=== PATIENT | male | born 1995 | race Caucasian/White ===

== ENCOUNTER 2019-05-15 11:53 | Emergency (ER) | payer OTHER ==
[~2019-05-15] VITALS: Ht 180.3 cm; Wt 88.5 kg
--- NOTE | ~2019-05-15 | EKG ---
[place] [address] ELECTROCARDIOGRAM REPORT Name: ANGELIA LÓPEZ Room: [facility]#: [id number] Admission: 05/15/19 Attend Phys: Discharge: Date of : 89 Date of Service: 05/15/19 1225 Report #: [id number] THIS REPORT FOR: cc: Carlos Alberto Iniguez MD, Dylan MD Epiphany, Epiphany MD ~ THIS REPORT FOR: //name// [facility] ED Test Date: 2019-05-15 Test Time: 12:25:39 Pat Name: ANGELIA LÓPEZ Department: Room: Gender: M Chamber Magistrate: : [id number] Requested By: Tiki Douglas Order Number: [id number] MD: Measurements Intervals [place] Rate: 82 P: 54 DE: 133 QRS: 42 QRSD: 90 T: 23 QT: 370 QTc: 432 Interpretive Statements Sinus rhythm Probable left atrial enlargement No previous ECG available for comparison [email or web address] By: 1225 1225 Epiphany EpiphanyMD /EPI
[~2019-05-15 11:53] MED LIST: ADDERALL 20 MG20 M1 PO; LEXAPRO 10 MG T10 MG PO; TRAMADOL 50 MG50 MG PO; VALIUM5 MG PO
[2019-05-15] MEDS ORDERED: XANAX2 MG PO (12:03)
[2019-05-15 12:31] LABS: URINE BILIRUBIN NEGATIVE (Negative); URINE BLOOD NEGATIVE (Negative); URINE CLARITY CLEAR; URINE COLOR YELLOW; URINE GLUCOSE-RANDOM NEGATIVE (Negative); URINE KETONES NEGATIVE (Negative); URINE LEUKOCYTES-REFLEX NEGATIVE (Negative); URINE NITRITE-REFLEX NEGATIVE (Negative); URINE PROTEIN NEGATIVE (Negative); URINE SPECIFIC GRAVITY 1.025 (1.005-1.030); URINE UROBILINOGEN 0.2 E.U./dl (0.2-1.0)
[2019-05-15 12:31] LABS: ABSOLUTE BASOPHILS 0.1 thou/uL (0.0-0.2); ABSOLUTE EOSINOPHILS 0.3 thou/uL (0.0-0.7); ABSOLUTE MONOCYTES 0.6 thou/uL (0.0-1.2); ABSOLUTE NEUTROPHILS 6.6 thou/uL (1.6-8.1); BASOPHILS 0.6 %; EOSINOPHILS 2.9 %; HEMOGLOBIN 15.9 gm/dL (14.0-18.0); LYMPHOCYTES 20.8 %; MCH 32.3 pg (26.0-34.0); MCHC 34.6 g/dL (28.0-37.0); MCV 93.4 fL (80.0-100.0); MONOCYTES 6.6 %; MPV 7.9 fl. (7.2-11.1); NUCLEATED RBCS 0 /100WBC; PLATELET COUNT* 240 thou/uL (150-400); POLYS 69.1 %; RBC 4.93 mil/uL (4.50-6.00); RDW-CV 13.2 % (10.5-14.5); WBC 9.6 thou/uL (4.0-11.0)
[2019-05-15 12:37] LABS: CALCIUM 8.5 mg/dL (8.5-10.1); POTASSIUM 3.5 mmol/L (3.5-5.1)
[2019-05-15 12:42] LABS: ALBUMIN 3.8 g/dL (3.4-5.0); TOTAL BILIRUBIN 0.4 mg/dL (<0.1-1.0); TOTAL PROTEIN 7.4 g/dL (6.4-8.2)
[2019-05-15] MEDS ORDERED: BENTYL 20 MG TA20 M1 PO (15:06)
[2019-05-15 15:31] VITALS: BP 125/85
== END 2019-05-15 15:31 | disposition home or self-care (01) ==
LOC: M.ERS 11:53
PROVIDERS: Nurse Practitioner Family
DX: R10.33 Periumbilical pain (principal); K62.5 Hemorrhage of anus and rectum; M54.9 Dorsalgia, unspecified; G89.29 Other chronic pain; F90.9 Attention-deficit hyperactivity disorder, unspecified type